=== PATIENT | male | born 1985 | race Caucasian/White ===

== ENCOUNTER → 2020-05-29 | Outpatient (CLI) | payer SELFPAY ==
--- NOTE | 2020-05-29 15:04 | Diagnostic Imaging Report ---
PROCEDURE: MRI left joint lower extremity without contrast. TECHNIQUE: Multiplanar, multisequence non contrast-enhanced MRI of the left lower extremity was accomplished. INDICATION: Chronic posterior ankle pain. COMPARISON: There are no prior studies available for comparison. FINDINGS: The STIR sagittal series does show a small area of increased signal interposed between the Achilles tendon and the calcaneus. I suspect that this is related to mild edema/inflammation of the bursa in this area. The Achilles tendon itself appears to be intact for the most part. There is no abnormal signal arising from the calcaneus itself. There is no other bony abnormality appreciated. The major ligaments and tendons are intact. IMPRESSION: 1. The abnormal signal interposed between the attachment of the Achilles tendon and the calcaneus most likely reflects mild edema/inflammation of the bursa in this area. The Achilles tendon itself appears to be intact for the most part. 2. There is no acute bony abnormality appreciated. 3. The other major ligaments and tendons are unremarkable for an acute injury. Dictated by: Dictated on workstation # [id number]
== END ==
LOC: RAD 12:29
PROVIDERS: ATTEND Student in an Organized Health Care Education/Training Program
DX: M67.88 Other specified disorders of synovium and tendon, other site (principal)
CPT/HCPCS: 73721

== ENCOUNTER 2020-11-20 09:00 | Outpatient (RCR) | payer OTHER | END 2021-02-18 | disposition home or self-care (01) | LOC: CARD 09:00 | PROVIDERS: ATTEND Student in an Organized Health Care Education/Training Program | DX: R00.0 Tachycardia, unspecified (principal) | CPT/HCPCS: 93270 ==